=== PATIENT | male | born 1955 | race Two or more races ===

== ENCOUNTER 2018-07-23 20:48 | Emergency (ER) | payer MEDICAID, OTHER ==
[~2018-07-23] VITALS: Ht 157.5 cm; Wt 71.8 kg
[2018-07-23] MEDS ORDERED: SODIUM CHLORIDE 0.9% 1,000 ML IVB ONE (23:01)
[2018-07-23] MEDS ORDERED: THIAMINE 100mg/ml INJ (200mg/2ml VIAL) IV ONE (23:15)
[2018-07-23 23:29] LABS: Urine Bacteria FEW /hpf (None Seen); Urine Blood Negative /uL (Negative); Urine Hyaline Cast FEW /lpf (0 - 2); Urine Specific Gravity 1.004 (1.001-1.035); Urine WBC <1 /hpf (0 - 3)
[2018-07-23 23:34] LABS: Basophils # (auto) 0 uL; Basophils % (auto) 0.7 % (0.0-2.0); Eosinophils # (auto) 0.1 uL; Eosinophils % (auto) 2.2 % (0.0-7.0); Hematocrit 42.4 % (41.0-53.0); Hemoglobin 14.6 g/dL (13.5-17.5); Lymphocytes # (auto) 2.9 uL; Lymphocytes % (auto) 45.1 % (10.0-50.0); Mean Corpuscular Hemoglobin 32.9 pg (28.0-32.0); Mean Corpuscular Hgb Conc. 34.4 g/dL (32.0-36.0); Mean Corpuscular Volume 95.7 fL (80.0-100.0); Monocytes # (auto) 0.3 uL; Monocytes % (auto) 5.4 % (0.0-12.0); Neutrophils % (auto) 46.6 % (37.0-80.0); Platelet Count (auto) 277 10^3/uL (140-450); Red Blood Cells 4.43 10^6/uL (4.5-5.90); Red Cell Distribution Width 13.3 % (11.8-14.3); White Blood Cell 6.4 10^3/uL (4.4-10.8)
[2018-07-23 23:41] LABS: Albumin 3.7 g/dL (3.4-5.0); Calcium 8.1 mg/dL (8.5-10.1); Magnesium 2.6 mg/dL (1.6-2.6); Potassium 3.9 mmol/L (3.5-5.1)
[2018-07-23 23:42] LABS: Amphetamine Screen, Urine POSITIVE (NEGATIVE); Barbiturate Scree,Urine NEGATIVE (NEGATIVE); Benzodiazephine Screen, Urine NEGATIVE (NEGATIVE); Cannabinoid Screen, Urine NEGATIVE (NEGATIVE)
[2018-07-23 23:43] LABS: Bilirubin, Total 0.1 mg/dL (0.2-1.0); Salicylate 4.5 mg/dL (2.8-20.0); Total Protein 7.7 g/dL (6.4-8.2)
[2018-07-23 23:46] LABS: Acetaminophen < 2.0 ug/mL (10-30)
[2018-07-24 00:03] LABS: Cocaine Screen, Urine NEGATIVE (NEGATIVE); Opiate Scree,Urine NEGATIVE (NEGATIVE); Phencyclidine Screen, Urine NEGATIVE (NEGATIVE)
[2018-07-24 02:03] VITALS: BP 98/56
== END 2018-07-24 05:34 | disposition home or self-care (01) ==
LOC: EDBD 20:48 → ER 20:54
DX: F10.10 Alcohol abuse, uncomplicated (principal); M54.2 Cervicalgia; E11.9 Type 2 diabetes mellitus without complications; Z86.73 Personal history of transient ischemic attack (TIA), and cerebral infarction without residual deficits; W10.8XXA Fall (on) (from) other stairs and steps, initial encounter; Y93.89 Activity, other specified; Y92.481 Parking lot as the place of occurrence of the external cause; Y99.8 Other external cause status
CPT/HCPCS: 36415; 70450; 80053; 80307; 80320; 80329; 81001; 83735; 85025; 94761; 96374; 99284; J3411; J7030

== ENCOUNTER 2018-08-04 23:27 | Inpatient (IN) | payer MEDICAID ==
[~2018-08-04] VITALS: Ht 160 cm; Wt 81.9 kg
[2018-08-05 01:19] LABS: Basophils # (auto) 0 uL; Basophils % (auto) 0.6 % (0.0-2.0); Eosinophils # (auto) 0.1 uL; Hematocrit 41.1 % (41.0-53.0); Hemoglobin 14.2 g/dL (13.5-17.5); Lymphocytes % (auto) 44.8 % (10.0-50.0); Mean Corpuscular Hgb Conc. 34.4 g/dL (32.0-36.0); Mean Corpuscular Volume 95.7 fL (80.0-100.0); Monocytes # (auto) 0.4 uL; Monocytes % (auto) 6.8 % (0.0-12.0); Neutrophils % (auto) 45.8 % (37.0-80.0); Platelet Count (auto) 263 10^3/uL (140-450); Red Cell Distribution Width 13.2 % (11.8-14.3); White Blood Cell 6.6 10^3/uL (4.4-10.8)
[2018-08-05 01:35] LABS: Calcium 8.4 mg/dL (8.5-10.1); Potassium 4.1 mmol/L (3.5-5.1); Salicylate 5.3 mg/dL (2.8-20.0)
[2018-08-05 01:40] LABS: Bilirubin, Total 0.4 mg/dL (0.2-1.0)
[2018-08-05 01:42] LABS: Acetaminophen < 2.0 ug/mL (10-30)
[2018-08-05 05:58] LABS: Urine Bacteria FEW /hpf (None Seen); Urine Blood Negative /uL (Negative); Urine Hyaline Cast FEW /lpf (0 - 2); Urine Mucus FEW (None Seen); Urine Specific Gravity 1.004 (1.001-1.035); Urine WBC <1 /hpf (0 - 3)
[2018-08-05 06:10] LABS: Amphetamine Screen, Urine NEGATIVE (NEGATIVE); Barbiturate Scree,Urine NEGATIVE (NEGATIVE); Benzodiazephine Screen, Urine NEGATIVE (NEGATIVE); Cannabinoid Screen, Urine NEGATIVE (NEGATIVE); Cocaine Screen, Urine NEGATIVE (NEGATIVE); Opiate Scree,Urine NEGATIVE (NEGATIVE); Phencyclidine Screen, Urine NEGATIVE (NEGATIVE)
[2018-08-05 06:18] LABS: Basophils # (auto) 0 uL; Basophils % (auto) 0.7 % (0.0-2.0); Eosinophils # (auto) 0.1 uL; Eosinophils % (auto) 2.7 % (0.0-7.0); Hematocrit 38.6 % (41.0-53.0); Hemoglobin 13.2 g/dL (13.5-17.5); Lymphocytes # (auto) 1.8 uL; Lymphocytes % (auto) 38.6 % (10.0-50.0); Mean Corpuscular Hemoglobin 32.4 pg (28.0-32.0); Mean Corpuscular Hgb Conc. 34.1 g/dL (32.0-36.0); Mean Corpuscular Volume 94.9 fL (80.0-100.0); Monocytes # (auto) 0.4 uL; Monocytes % (auto) 7.9 % (0.0-12.0); Neutrophils # (auto) 2.4 uL; Neutrophils % (auto) 50.1 % (37.0-80.0); Nucleated Red Blood Cells % 0.1 %; Platelet Count (auto) 250 10^3/uL (140-450); Red Blood Cells 4.07 10^6/uL (4.5-5.90); Red Cell Distribution Width 13.7 % (11.8-14.3); White Blood Cell 4.8 10^3/uL (4.4-10.8)
[2018-08-05 06:31] LABS: INR 0.86 (0.9-1.15)
[2018-08-05 06:35] LABS: Albumin 3.5 g/dL (3.4-5.0); BUN/Creatinine Ratio 11.8; Calcium 8.2 mg/dL (8.5-10.1); Magnesium 2.5 mg/dL (1.6-2.6); Potassium 3.8 mmol/L (3.5-5.1)
[2018-08-05 06:40] LABS: Bilirubin, Total 0.3 mg/dL (0.2-1.0); Total Protein 7.2 g/dL (6.4-8.2)
[2018-08-05] MEDS ORDERED: ONDANSETRON HCL 4 MG/2 ML VIAL IV PRN (06:45)
[2018-08-05] MEDS ORDERED: ACETAMINOPHEN 500 MG TAB PO PRN (06:45)
[2018-08-05] MEDS ORDERED: LORazepam 0.5 MG TAB PO PRN (06:45)
[2018-08-05] MEDS ORDERED: DEXTROSE (50%) 50ML SYRG IV PRN (07:15)
[2018-08-05] MEDS ORDERED: hydrALAZINE HCL 20 MG/ML VL IV PRN (09:30)
[2018-08-05] MEDS: THIAMINE 100mg/ml INJ (200mg/2ml VIAL) IV SCH (09:48)
[2018-08-05] MEDS: FOLIC ACID 1 MG TAB PO SCH (09:50)
[2018-08-05] MEDS: ASPirin-EC 81 mg tab PO SCH (09:51)
[2018-08-05] MEDS: CITALOPRAM HYDROBR 20 MG TAB PO SCH (09:52)
[2018-08-05] MEDS: MULTIPLE VITAMIN TAB PO SCH (09:56)
[2018-08-05] MEDS ORDERED: CARVEDILOL 3.125 MG TAB PO SCH (10:00)
[2018-08-05] MEDS ORDERED: LISINOPRIL 20 MG TAB PO SCH (10:00)
[2018-08-05] MEDS ORDERED: CLOPIDOGREL 300 MG TAB PO ONE (11:30)
[2018-08-05] MEDS: ACCU-CHEK COMFORT CURVE STRIP VI SCH ×3 (11:42→21:37)
[2018-08-05] MEDS: InsuLIN REG 1unit/0.01ml Soln (100units/ml) SC SCH ×3 (12:06→21:36)
[2018-08-05] MEDS: SODIUM CHLORIDE 0.9% 1,000 ML IV SCH ×2 (12:07→22:00)
[2018-08-05] MEDS: amLODIPine BESYLATE 5 MG TAB PO SCH (12:10)
[2018-08-05 12:48] VITALS: BP 175/88
[2018-08-05 15:27] VITALS: BP 150/72
[2018-08-05 16:04] VITALS: BP 141/76
[2018-08-05 17:14] VITALS: BP 141/76
--- NOTE | 2018-08-05 19:30 | NUR ---
assumed care, pt. awake, alert and oriented, no c/o pain, no sob.
--- NOTE | 2018-08-05 21:11 | NUR ---
family came and visit patient.
[2018-08-05] MEDS: CARVEDILOL 12.5 MG TAB PO SCH (21:36)
[2018-08-05] MEDS ORDERED: ATORVASTATIN 20 MG TAB PO SCH (22:00)
[2018-08-06] MEDS: SODIUM CHLORIDE 0.9% 1,000 ML IV SCH (04:14)
[2018-08-06 04:30] VITALS: BP 141/80
[2018-08-06] MEDS: ACCU-CHEK COMFORT CURVE STRIP VI SCH ×3 (06:05→17:00)
[2018-08-06] MEDS: InsuLIN REG 1unit/0.01ml Soln (100units/ml) SC SCH ×3 (06:06→11:33)
[2018-08-06 08:15] VITALS: BP 157/81
[2018-08-06 08:19] VITALS: BP 132/66
[2018-08-06] MEDS ORDERED: CLOPIDOGREL BISULFATE 75 MG TAB PO SCH (10:00)
[2018-08-06] MEDS: THIAMINE 100mg/ml INJ (200mg/2ml VIAL) IV SCH (11:30)
[2018-08-06] MEDS: ASPirin-EC 81 mg tab PO SCH (11:31)
[2018-08-06] MEDS: FOLIC ACID 1 MG TAB PO SCH (11:31)
[2018-08-06] MEDS: MULTIPLE VITAMIN TAB PO SCH (11:31)
[2018-08-06] MEDS: CARVEDILOL 12.5 MG TAB PO SCH ×2 (11:32→11:42)
[2018-08-06] MEDS: CITALOPRAM HYDROBR 20 MG TAB PO SCH (11:36)
[2018-08-06] MEDS: amLODIPine BESYLATE 5 MG TAB PO SCH (11:39)
[2018-08-06 12:33] VITALS: BP 138/60
[2018-08-06 15:43] VITALS: BP 138/60
--- NOTE | 2018-08-06 16:20 | NUR ---
faxed ss order to [facility] to give auth to [facility]
--- NOTE | 2018-08-06 17:00 | NUR ---
assessment Per ss consult arrange for home health for safety eval and fww. MD order has been sent to [facility]. Per Antonietta Torres [facility] has accepted and awaiting auth from [facility]. Per Ute SALAS awaiting auth from [facility]. Per Elen patient case manager she is working on authorization now. Addendum: 08/06/18 at 1703 by Caitlin TAMAYO Amended: Links added.
[2018-08-06] MEDS ORDERED: chlordiazePOXIDE HCL 5 MG CAP PO SCH (18:00)
[2018-08-06] MEDS ORDERED: LISINOPRIL 5 MG TAB PO SCH (18:00)
--- NOTE | 2018-08-06 18:42 | NUR ---
PATIENT DC HOME ALL DC PAPER WORK GAVE TO PATIENT VITAL SIGNS IN NORMAL LIMITS T 97.7 R 18 HR 78 BP 132/72 [address]2 99% DR JACOBO WANT TO DC THE PATIENT AND THE WALKER DELIVER TO PATIENT HOME BY HOME HEALTH WISH IS ARRANGED BY BEAN SNIPPER PATIENT FEELING GOOD ALERT ORIENT NOT COMPLAINING OF PAIN //DiCaprio RN
--- NOTE | 2018-08-07 09:59 | NUR ---
AUTH FOR GRAPEVINE IS [id number] AND FOR SG IS [id number] PER DIONICIO AT [facility]
== END 2018-08-06 22:10 | disposition home health service (06) | DRG 190 ==
LOC: ER 23:29 → TELE 08-05 06:43 → TELE-WESTW 08-05 09:11
PROVIDERS: ADMIT Nurse Practitioner Family; ATTEND Hospitalist
DX: I21.4 Non-ST elevation (NSTEMI) myocardial infarction (principal); G92 Toxic encephalopathy; E11.22 Type 2 diabetes mellitus with diabetic chronic kidney disease; I13.0 Hypertensive heart and chronic kidney disease with heart failure and stage 1 through stage 4 chronic kidney disease, or unspecified chronic kidney disease; I50.9 Heart failure, unspecified; N18.2 Chronic kidney disease, stage 2 (mild); F10.129 Alcohol abuse with intoxication, unspecified; E78.5 Hyperlipidemia, unspecified; I25.10 Atherosclerotic heart disease of native coronary artery without angina pectoris; Z59.0 Homelessness; Z83.3 Family history of diabetes mellitus; Z86.73 Personal history of transient ischemic attack (TIA), and cerebral infarction without residual deficits; Z87.891 Personal history of nicotine dependence; Z91.19 Patient's noncompliance with other medical treatment and regimen; Z71.41 Alcohol abuse counseling and surveillance of alcoholic
CPT/HCPCS: 36415; 71045; 80053; 80307; 80320; 80329; 81001; 82962; 83036; 83735; 84484; 85025; 85379; 85610; 85730; 93005; 94761; 96361; 96374; G0378; J1815